=== PATIENT | male | born 1990 | race Caucasian/White ===

== ENCOUNTER 2022-11-20 06:23 | Emergency (ER) | payer SELFPAY ==
[~2022-11-20] VITALS: Ht 172.7 cm; Wt 87.1 kg
[2022-11-20] MEDS ORDERED: KETOROLAC TROMETHAMINE 60 MG/2 ML VIAL IM ONE ×2 (06:45)
[2022-11-20 07:42] LABS: CLARITY,URINE CLOUDY (CLEAR); COLOR,URINE YELLOW (YELLOW); KETONES,URINE NEGATIVE (NEGATIVE); LEUKOCYTE ESTERASE ,URINE NEGATIVE (NEGATIVE); NITRITE,URINE NEGATIVE (NEGATIVE); PROTEIN,URINE DIPSTICK 1+ (NEGATIVE); URINE UROBILINOGEN 0.2 mg/dL (0.2 - 1)
[2022-11-20 07:44] LABS: RBC,URINE >50 /HPF (0-5); WBC,URINE (MAN) 0-5 /HPF (0-5)
[2022-11-20 07:45] LABS: BACTERIA,URINE FEW /HPF; CALCIUM OXALATE CRYSTALS,UR FEW (FEW); EPITHELIAL CELLS,URINE FEW /LPF
[2022-11-20 09:00] VITALS: O2SAT 99
[2022-11-20] MEDS ORDERED: ONDANSETRON ODT4 MG PO (09:03)
[2022-11-20] MEDS ORDERED: FLOMAX0.4 MG PO (09:03)
[2022-11-20] MEDS ORDERED: ULTRAM 50MG50 MG PO (09:03)
== END 2022-11-20 09:30 | disposition home or self-care (01) ==
LOC: ER 06:24
DX: M54.50 Low back pain, unspecified (principal); N20.2 Calculus of kidney with calculus of ureter
CPT/HCPCS: 74176; 81001; 99284; J1885